=== PATIENT | female | born 1980 | race Caucasian/White ===

== ENCOUNTER 2020-01-23 08:09 | Emergency (ER) | payer MEDICARE ==
[2020-01-23] MEDS ORDERED: HYDROcodone 10MG/APAP 325MG 1 EA TAB PO ONE (08:37)
[2020-01-23] MEDS ORDERED: fentaNYL PATCH 100MCG/HR 1 EA PATCH TD ONE (08:42)
--- NOTE | 2020-01-23 08:42 | RAD ---
EXAM DESCRIPTION: Chest,1 View CLINICAL HISTORY: 39 years Female, sob on vent COMPARISON: None. TECHNIQUE: Single view radiograph of the chest. IMPRESSION: Normal size cardiac silhouette. Endotracheal tube in place terminating 3.5 cm above the emmanuel. Right IJ central venous catheter is directed inferiorly terminating near the cavoatrial junction. Mild bilateral perihilar vascular congestion versus infectious as bronchitis. Mild opacity in the medial lung bases may represent passive atelectasis contributed by suboptimal is distorted volume. Pneumonia or aspiration not excluded. Small left pleural effusion. No pneumothorax. Thoracic spondylosis. Electronically signed by: Mekhi Saenz MD 01/23/2020 8:41 AM CDT
[2020-01-23] MEDS ORDERED: MAGNESIUM SULFATE PREMIX 2GM 2 GM in PREMIX BAG 1 BAG IVPB ONE (09:09)
[2020-01-23] MEDS ORDERED: MAGNESIUM SULFATE PREMIX 2GM 50 ML IVPB ONE (09:32)
[2020-01-23] MEDS ORDERED: IPRATROPIUM/ALBUTEROL 3 ML VIAL NEB ONE (10:03)
[2020-01-23] MEDS ORDERED: ACETYLCYSTEIN 20 % 6,000 MG/30 ML VIAL NEB ONE (10:04)
[2020-01-23] MEDS ORDERED: cefTRIAXone SODIUM 1 GM in SODIUM CHL 0.9% 50ML MIN-BAG+ 50 ML IVPB ONE (10:29)
[2020-01-23] MEDS ORDERED: SODIUM CHLORIDE 0.9% 1000ML 1,000 ML IVS ONE (10:29)
[2020-01-23] MEDS ORDERED: cefTRIAXone SODIUM 1 GM VIAL ONE (11:00)
[2020-01-23] MEDS ORDERED: SODIUM CHL 0.9% 50ML MIN-BAG+ 50 ML IVPB ONE (11:00)
[2020-01-23] MEDS ORDERED: MORPHINE SULFATE INJ 10 MG/ML VIAL IV ONE ×2 (11:44→16:02)
[2020-01-23] MEDS ORDERED: KETOROLAC TROMETHAMINE INJ 30 MG/ML VIAL IV ONE (14:55)
--- NOTE | 2020-01-23 14:55 | CT ---
EXAM DESCRIPTION: CTA Chest: Computed Tomography. CLINICAL HISTORY: elevated d-dimer, vent pat, tachypnea COMPARISON: CT abdomen November 03 and chest x-ray on this visit. TECHNIQUE: Spiral-axial scans at 2.5 x 2.5 mm mm intervals through the pulmonary arteries and chest after bolus infusion of IV contrast. Note: Contrast was administered through central line to superior vena cava. Lung algorithm 1.25 x 2.5_-mm axial reconstructions. Coronal and sagittal 2.0 Mm reconstructions. 10.0 mm PE oblique 3-D reformatted images. No adverse reactions. Total Exam DLP: 878 mGy-cm. This exam was performed according to our departmental CT dose-optimization program which includes automated exposure control, adjustment of the mA and/or kV according to patient size and/or use of iterative reconstruction technique; to reduce radiation dose to as low as reasonably achievable (ALARA). FINDINGS: Pulmonary arteries: Moderately enhanced vessels from the main pulmonary artery to the bilateral proximal subsegmental pulmonary artery branches with no filling defects. The peripheral pulmonary artery branch vessels are bilaterally symmetric in caliber. Heart and other great vessels: Central line tip at these superior caval atrial junction. Prominent azygos vein. Lungs and airways: Elevated right hemidiaphragm. Atelectasis in the right middle lobe. There are bronchograms and dense consolidated infiltrate measuring 3.1 x 3.8 cm in the inferior middle lobe. This is less likely to represent a mass. Bilateral patchy infiltrates in the lower lobes, more right than left. Groundglass densities in the bilateral inferior upper lobe bases abutting the major fissure, more dense on the right. Atelectasis versus scarring in the inferior lingula. Pleural parenchymal scarring in the inferior left lower lobe with volume loss compared to the right. Pleura: Bilateral thickening with focal nodular thickening more prevalent right upper lobes. No effusion or pneumothorax. Mediastinum and peggy: scatter artifact from dense PA contrast. Benign type nodes. No dominant soft tissue mass. Soft tissue neck, chest wall, and axillae: Endotracheal tube tip 3.3 cm above the emmanuel. Axillary lymph nodes not enlarged. No dominant soft tissue mass. Upper abdomen: No free fluid or free air. Liver elevated with elevation of the right hemidiaphragm. Partially visualized and enlarged with fatty density.. Osseous structures: Unremarkable. IMPRESSION: 1. Markedly elevated right hemidiaphragm with fatty liver under the diaphragm. Pneumonia versus atelectasis in the right middle lobe; mass unlikely. Pneumonia is more likely bacterial then viral. Also patchy infiltrates in the bilateral lower lobes right more than left. Peripheral groundglass densities in the upper lobes. Pleural thickening with no effusion. 2. Hilar and mediastinal nodes are not enlarged. Customary position of endotracheal tube and Central VAD tip in the SVC. CRITICAL COMMUNICATION: The critical value was communicated directly by Dr. Cox via phone call, with Dr. Trung Harden, at approximately 1446, on January 23, 2020. Electronically signed by: Joao Cox MD 01/23/2020 2:53 PM CDT
--- NOTE | 2020-01-23 15:19 | ED.PDOC ---
History of Present Illness - General Chief Complaint: Respiratory Problem Stated Complaint: half-way reports "respiratory distress" Time Seen by Provider: 01/23/20 08:14 Source: patient, EMS notes reviewed, half-way records Exam Limitations: clinical condition - History of Present Illness Initial Comments: The patient is a 39-year-old female, ventilator dependent presenting secondary to tachypnea. No fever. No productive cough. No syncope. She reports some mild chest discomfort feeling like she has a hard time breathing. Additional information is passed along by half-way with the patient had apparently been on hydrocodone up to 6 times a day prior to around her arrival at this facility. She is no longer on hydrocodone and she is due for a fentanyl patch change as well. She has not thrown up. The patient has only been at this facility in town 1 day. She is unfamiliar to myself and staff here at the hospital at this time. The patient does seem anxious and uncomfortable. She is significantly tachypneic when she gets more worked up. When she relaxes her breathing rate goes down from the upper 50s down to the 20s. She was given 1 do se of 4 mg of morphine which brought the respiratory rate down to around 20 for a period of about 3 hours. Timing/Duration: unsure Severity: moderate Improving Factors: nothing Worsening Factors: other - Anxiety Associated Symptoms: chest pain - Mild, shortness of breath Allergies/Adverse Reactions: Allergies Amoxicillin Allergy (Verified 01/23/20 08:21) Azithromycin Allergy (Verified 01/23/20 08:21) Bee Venom Allergy (Verified 01/23/20 08:21) Clarithromycin Allergy (Verified 01/23/20 08:21) Penicillins Allergy (Verified 01/23/20 09:13) Home Medications: Ambulatory Orders Albuterol Sulfate Nebs [Proventil Nebs] 2.5 mg INH Q4HR PRN 01/23/20 Albuterol Sulfate Nebs [Proventil Nebs] 3 ml INH BID 01/23/20 Aspirin (Buffered) 325 mg [Bufferin 325 mg] 325 mg PO DAILY 01/23/20 Atorvastatin Calcium 40 mg PO DAILY 01/23/20 Benzonatate 200 mg PO TID 01/23/20 Budesonide (Inhalation) [Budesonide] 2 ml INH BID 01/23/20 Clonazepam [Clonazepam Odt] 0.25 mg PO Q4HR 01/23/20 Clonidine HCl 0.1 mg PO Q6HR PRN 01/23/20 Dextromethorphan-Guaifenesin [Supress Dm Pediatric 5-50 mg/ml] 10 ml PO Q4HR PRN 01/23/20 Famotidine 40 mg PO DAILY 01/23/20 Fluticasone/Salmeterol 500/50 [Advair Diskus] 1 puff INH DAILY 01/23/20 Insulin Glargine [Basaglar Kwikpen] 14 units SUBCU DAILY 01/23/20 Ipratropium-Albuterol [Ipratropium [place]/Albut 0.5-2.5 (3) mg/3Ml] 3 ml INH Q4HR PRN 01/23/20 LORazepam [Ativan] 0.5 mg PO Q6HR 01/23/20 Lactobacillus [Acidophilus] 2 tab PEG DAILY 01/23/20 Methocarbamol 750 mg PO TID 01/23/20 Nystatin Suspension 500,000 units PO QID 01/23/20 Pantoprazole Sodium 40 mg PO DAILY 01/23/20 Quetiapine Fumarate 25 mg PO TID 01/23/20 Review of Systems - Review of Systems Review of Systems: 01/23/20 15:20 Review of systems is limited due to difficulty with communication. The patient is able to nod yes and no fairly reliably Constitutional: States: no symptoms reported EENTM: States: no symptoms reported Respiratory: States: short of breath Cardiology: States: chest pain Gastrointestinal/Abdominal: States: no symptoms reported Genitourinary: States: no symptoms reported Musculoskeletal: States: no symptoms reported Skin: States: no symptoms reported Neurological: States: no symptoms reported Endocrine: States: no symptoms reported All other Systems: No Change from Baseline Past Medical History (General) - Patient Medical History Hx Seizures: No Hx Stroke: No Hx Dementia: No Hx Asthma: Yes Hx of COPD: No Hx Cardiac Disorders: No Hx Congestive Heart Failure: Yes Hx Pacemaker: No Hx Hypertension: No Hx Thyroid Disease: No Hx Diabetes: Yes Hx Renal Disease: No Hx Cancer: No Hx of HIV: No Hx Hepatitis C: No Hx MRSA: No - Vaccination History Hx Tetanus, Diphtheria Vaccination: - unknown Hx Influenza Vaccination: - unknown Hx Pneumococcal Vaccination: - unknown Immunizations Up to Date: - unknown - Social History Hx Tobacco Use: No Hx Alcohol Use: No Hx Substance Use: No Hx Substance Use Treatment: No Hx Depression: No - Activities of Daily Living [facility] (if applicable[facility]:: [facility] - Female History Patient is a Female of Child Bearing Age (10 -59 yrs old): Yes Family Medical History - Family History Mother Family History: Unknown Physical Exam - Physical Exam General Appearance: Alert, Anxious Eye Exam: bilateral normal Ears, Nose, Throat: hearing grossly normal, normal ENT inspection Neck: full range of motion, supple, other - Tracheostomy is in place Respiratory: no respiratory distress, no accessory muscle use, other - The patient is tachypneic. Shallow breathing. Mild scattered rales. Cardiovascular/Chest: normal peripheral pulses, regular rate, rhythm, no edema, other - Right-sided chest has a central line in place. Peripheral Pulses: radial,right: 2+, radial,left: 2+, dorsalis pedis,right: 2+, dorsalis pedis,left: 2+ Gastrointestinal/Abdominal: non tender - Morbidly obese. 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 nml as tested, alert, oriented x 3 - Anxious Skin Exam: normal color Comments: Vital Signs - 24 hr 01/23/20 01/23/20 01/23/20 08:10 08:16 09:00 Temperature 98.5 F Pulse Rate Pulse Rate [ 114 H 104 H 104 H monitor] Respiratory 60 H 60 H 23 Rate Respiratory 60 H Rate [Volume Control Data] Blood Pressure 146/98 123/90 [right forearm] O2 Sat by Pulse 99 99 Oximetry 01/23/20 01/23/20 01/23/20 10:00 10:29 10:55 Temperature Pulse Rate 89 88 Pulse Rate [ 88 monitor] Respiratory 34 H 45 H 72 H Rate Respiratory 78 H Rate [Volume Control Data] Blood Pressure 91/79 [right forearm] O2 Sat by Pulse 98 100 100 Oximetry 01/23/20 01/23/20 01/23/20 11:00 12:00 13:00 Temperature 97.9 F Pulse Rate Pulse Rate [ 57 L 82 57 L monitor] Respiratory 22 22 22 Rate Respiratory Rate [Volume Control Data] Blood Pressure 119/93 93/50 113/67 [right forearm] O2 Sat by Pulse 97 99 96 Oximetry 01/23/20 14:00 Temperature Pulse Rate Pulse Rate [ 72 monitor] Respiratory 22 Rate Respiratory Rate [Volume Control Data] Blood Pressure 112/83 [right forearm] O2 Sat by Pulse 97 Oximetry Progress - Progress Progress: 01/23/20 15:25 The patient is a 39-year-old female, ventilator dependent presented emergency room from the half-way after apparently only having been there a day, for tachypnea. Work-up here has shown fairly normal blood work. She does have a small urinary tract infection. Urine will be cultured. Blood is being cultured along with a sputum. CT scan of the chest showed no evidence of any pulmonary embolus but she does have a right middle lobe atelectasis with questionable pneumonia as well. Pattern seems more bacterial than viral. The patient is not hypoxic. ABG was reassuring. Tachycardia and tachypnea both dramatically improve with a small dose of morphine here. We did replace the fentanyl patch. There is some question as to whether the patient was receiving additional hydrocodone dosages at her previous facility but she is not receiving at the current 1. If that is the case then there may be some small component of opiate dose reduction withdrawal. The patient has been given a dose of Rocephin and Levaquin here for the right middle lobe pneumonia and atelectasis. The patient is being transferred to [facility] for pulmonology evaluation. It is questionable whether the patient has a significant mucous plug contributing to the right middle lobe atelectasis, which may require more direct intervention. horace ramirez [phone] 01/23/20 15:56 - Results/Orders Results/Orders: EKG shows sinus tachycardia 117 beats a minute. Q wave in lead III. Normal R wave progression. Borderline low voltage. Normal axis otherwise. Normal QT interval. No definitive ST segment or T wave changes indicative of acute ischemia. Sinus tachycardia Laboratory Results - last 24 hr 01/23/20 01/23/20 01/23/20 08:30 08:35 08:35 WBC 8.5 RBC 4.17 L Hgb 10.9 L Hct 34.3 L MCV 82.3 MCH 26.2 L MCHC 31.8 L RDW 14.6 H Plt Count 578 H MPV 7.8 Absolute Neuts (auto) 4.10 Absolute Lymphs (auto) 3.30 Absolute Monos (auto) 0.60 Absolute Eos (auto) 0.50 H Absolute Basos (auto) 0.10 Neutrophils % 48.0 Lymphocytes % 38.4 Monocytes % 6.7 Eosinophils % 5.9 H Basophils % 1.0 PT INR PTT (SP) D-Dimer, Quantitative pCO2 pO2 HCO3 ABG pH ABG O2 Saturation ABG Base Excess ABG Deoxyhemoglobin Oxyhemoglobin % Carboxyhemoglobin % Methemoglobin % Sat Calc Total Hemoglobin Sodium 138 Potassium 3.9 Chloride 103 Carbon Dioxide 24 Anion Gap 14.9 BUN 17 Creatinine 0.83 BUN/Creatinine Ratio 20.5 H POC Glucose 138 H Random Glucose 137 H Serum Osmolality 279.4 Lactic Acid Calcium 9.6 Magnesium 1.6 L Total Bilirubin 0.4 AST 34 ALT 36 Alkaline Phosphatase 94 Creatine Kinase 28 CK-MB (CK-2) 0.6 CK-MB (CK-2) % Not Reportable Troponin I < 0.02 B-Natriuretic Peptide 23.8 Serum Total Protein 7.9 Albumin 3.6 Globulin 4.3 H Albumin/Globulin Ratio 0.8 L Serum HCG, Qual Urine Color Urine Appearance Urine pH Ur Specific [place] Urine Protein Urine Glucose (UA) Urine Ketones Urine Blood Urine Nitrite Urine Bilirubin Urine Urobilinogen Ur Leukocyte Esterase Urine RBC Urine WBC Ur Epithelial Cells Calcium Oxalate Crystal Amorphous Sediment Urine Bacteria Hyaline Casts Urine Mucus 01/23/20 01/23/20 01/23/20 08:35 08:35 08:35 WBC RBC Hgb Hct MCV MCH MCHC RDW Plt Count MPV Absolute Neuts (auto) Absolute Lymphs (auto) Absolute Monos (auto) Absolute Eos (auto) Absolute Basos (auto) Neutrophils % Lymphocytes % Monocytes % Eosinophils % Basophils % PT 10.8 INR 1.09 PTT (SP) 27.3 D-Dimer, Quantitative 506 H pCO2 pO2 HCO3 ABG pH ABG O2 Saturation ABG Base Excess ABG Deoxyhemoglobin Oxyhemoglobin % Carboxyhemoglobin % Methemoglobin % Sat Calc Total Hemoglobin Sodium Potassium Chloride Carbon Dioxide Anion Gap BUN Creatinine BUN/Creatinine Ratio POC Glucose Random Glucose Serum Osmolality Lactic Acid 1.8 Calcium Magnesium Total Bilirubin AST ALT Alkaline Phosphatase Creatine Kinase CK-MB (CK-2) CK-MB (CK-2) % Troponin I B-Natriuretic Peptide Serum Total Protein Albumin Globulin Albumin/Globulin Ratio Serum HCG, Qual Negative Urine Color Urine Appearance Urine pH Ur Specific [place] Urine Protein Urine Glucose (UA) Urine Ketones Urine Blood Urine Nitrite Urine Bilirubin Urine Urobilinogen Ur Leukocyte Esterase Urine RBC Urine WBC Ur Epithelial Cells Calcium Oxalate Crystal Amorphous Sediment Urine Bacteria Hyaline Casts Urine Mucus 01/23/20 01/23/20 08:38 10:00 WBC RBC Hgb Hct MCV MCH MCHC RDW Plt Count MPV Absolute Neuts (auto) Absolute Lymphs (auto) Absolute Monos (auto) Absolute Eos (auto) Absolute Basos (auto) Neutrophils % Lymphocytes % Monocytes % Eosinophils % Basophils % PT INR PTT (SP) D-Dimer, Quantitative pCO2 32 pO2 63 L HCO3 23.3 ABG pH 7.466 H ABG O2 Saturation 93.6 L ABG Base Excess 0.1 ABG Deoxyhemoglobin 6.3 H Oxyhemoglobin % 92.2 L Carboxyhemoglobin % 0.8 Methemoglobin % Sat 0.7 Calc Total Hemoglobin 11.3 L Sodium Potassium Chloride Carbon Dioxide Anion Gap BUN Creatinine BUN/Creatinine Ratio POC Glucose Random Glucose Serum Osmolality Lactic Acid Calcium Magnesium Total Bilirubin AST ALT Alkaline Phosphatase Creatine Kinase CK-MB (CK-2) CK-MB (CK-2) % Troponin I B-Natriuretic Peptide Serum Total Protein Albumin Globulin Albumin/Globulin Ratio Serum HCG, Qual Urine Color Dk yellow H Urine Appearance Sl cloudy Urine pH 5.5 Ur Specific [place] >= 1.030 Urine Protein 100 H Urine Glucose (UA) Negative Urine Ketones Negative Urine Blood Moderate H Urine Nitrite Negative Urine Bilirubin Small H Urine Urobilinogen 0.2 Ur Leukocyte Esterase Negative Urine RBC 1-3 Urine WBC 30-40 H Ur Epithelial Cells 1-3 Calcium Oxalate Crystal 1+ Amorphous Sediment Trace Urine Bacteria Rare Hyaline Casts 0-1 Urine Mucus Small Departure - Departure Clinical Impression: Ventilator associated pneumonia, Atelectasis of right lung, Cystitis Disposition: Transfer to Hospital Condition: Serious Departure Forms: ED Discharge - Pt. Copy, Patient Portal Self Enrollment Referrals: MIKE HDZ [Primary Care Provider] - 1-2 Weeks Home Medications: Ambulatory Orders Albuterol Sulfate Nebs [Proventil Nebs] 2.5 mg INH Q4HR PRN 01/23/20 Albuterol Sulfate Nebs [Proventil Nebs] 3 ml INH BID 01/23/20 Aspirin (Buffered) 325 mg [Bufferin 325 mg] 325 mg PO DAILY 01/23/20 Atorvastatin Calcium 40 mg PO DAILY 01/23/20 Benzonatate 200 mg PO TID 01/23/20 Budesonide (Inhalation) [Budesonide] 2 ml INH BID 01/23/20 Clonazepam [Clonazepam Odt] 0.25 mg PO Q4HR 01/23/20 Clonidine HCl 0.1 mg PO Q6HR PRN 01/23/20 Dextromethorphan-Guaifenesin [Supress Dm Pediatric 5-50 mg/ml] 10 ml PO Q4HR PRN 01/23/20 Famotidine 40 mg PO DAILY 01/23/20 Fluticasone/Salmeterol 500/50 [Advair Diskus] 1 puff INH DAILY 01/23/20 Insulin Glargine [Basaglar Kwikpen] 14 units SUBCU DAILY 01/23/20 Ipratropium-Albuterol [Ipratropium [place]/Albut 0.5-2.5 (3) mg/3Ml] 3 ml INH Q4HR PRN 01/23/20 LORazepam [Ativan] 0.5 mg PO Q6HR 01/23/20 Lactobacillus [Acidophilus] 2 tab PEG DAILY 01/23/20 Methocarbamol 750 mg PO TID 01/23/20 Nystatin Suspension 500,000 units PO QID 01/23/20 Pantoprazole Sodium 40 mg PO DAILY 01/23/20 Quetiapine Fumarate 25 mg PO TID 01/23/20 Transfer to Outside Facility - Transfer Information Decision to Transfer Date: 01/23/20 Decision to Transfer Time: 16:01 Reason for Transfer: specialized care not available Accepting Provider:: dr annalise yanes Accepting Facility: [facility]
[2020-01-23] MEDS ORDERED: levoFLOXacin 500MG IV 500 MG in PREMIX BAG 1 BAG IVPB ONE (16:02)
[2020-01-23] MEDS ORDERED: levoFLOXacin 500MG IV 100 ML IVPB ONE (16:10)
[2020-01-23 18:23] VITALS: BP 143/126; TEMP 98.7; O2SAT 98
== END 2020-01-23 16:30 | disposition short-term general hospital (02) ==
LOC: ER 08:09
DX: J95.851 Ventilator associated pneumonia (principal); N30.00 Acute cystitis without hematuria; E11.9 Type 2 diabetes mellitus without complications; E66.01 Morbid (severe) obesity due to excess calories; R00.0 Tachycardia, unspecified; J45.909 Unspecified asthma, uncomplicated; I50.9 Heart failure, unspecified; Z99.11 Dependence on respirator [ventilator] status; Z79.899 Other long term (current) drug therapy; Z79.4 Long term (current) use of insulin
CPT/HCPCS: 36415; 36416; 36600; 71045; 71275; 80053; 81001; 82550; 82553; 82803; 82805; 82948; 83605; 83735; 83880; 84484; 84703; 85025; 85379; 85610; 85730; 87040; 87070; 87077; 87086; 87186; 87205; 87502; 93005; 94002; 94640; 96365; 96367; 96375; 99285; J0696; J1885; J1956; J2270; J3475; J7030; J7050; J7620